=== PATIENT | female | born 1965 | race Caucasian/White ===

== ENCOUNTER 2024-10-13 06:07 | Day surgery (SDC) | payer BC ==
[2024-10-12 09:03] VITALS: BMI 35.6
[~2024-10-13 06:07] MED LIST: EPINEPHrine 0.3 MG, Dextrose 50% 3 ML in Ophthalmic Irrigation Solution 500 ML IRR SCH
[2024-10-13] MEDS ORDERED: Cyclopentolate 1% Opth Drop 2 ML BOT ONE (06:15)
[2024-10-13] MEDS ORDERED: PHENYLephrine 2.5% Ophth Soln 15 ml Bottle ONE (06:15)
[2024-10-13] MEDS ORDERED: fentaNYL 50 mcg/mL 1 mL Vial ONE (07:47)
[2024-10-13] MEDS ORDERED: Midazolam HCl 2 mg/2 ml Vial ONE (07:47)
[2024-10-13] MEDS ORDERED: Triamcinolone 40 MG/ML VIAL ONE (07:57)
[2024-10-13] MEDS ORDERED: Bupivacaine 0.75% 10 ML VIAL ONE (07:57)
[2024-10-13] MEDS ORDERED: PROPOFOL 200 MG/20 ML VIAL ONE (07:57)
[2024-10-13] MEDS ORDERED: TISSUEBLUE 0.5 ML SYRINGE IO ONE (07:57)
[2024-10-13] MEDS ORDERED: CEFAZOLIN 1 GM VIAL ONE (07:57)
[2024-10-13] MEDS ORDERED: Maxitrol 0.1% Opth Oint 3.5 GM TUBE ONE (07:57)
[2024-10-13] MEDS ORDERED: Lidocaine 1% PF 5 ML VIAL ONE (07:57)
[2024-10-13] MEDS ORDERED: Lidocaine 4% PF 5 ML AMP ONE (07:57)
== END 2024-10-13 08:40 | disposition home or self-care (01) ==
LOC: SDC 06:07
PROVIDERS: ATTEND Ophthalmology Retina Specialist
PROC: 08T53ZZ Resection of Left Vitreous, Percutaneous Approach (ICD-10-PCS; principal; 2024-10-13)
DX: H35.372 Puckering of macula, left eye (principal)
CPT/HCPCS: J0171; J0690; J2250; J2704; J3010; J3301; J3490